=== PATIENT | male | born 1945 | race Two or more races ===

== ENCOUNTER 2018-05-09 13:12 | Inpatient (IN) | payer MEDICARE, OTHER ==
[~2018-05-09] VITALS: Ht 167.6 cm; Wt 107.7 kg
[~2018-05-09 13:12] MED LIST: OLME20TA17
[2018-05-09 14:30] LABS: BASOPHILS # (AUTO) 0.11 x10^3/uL (0-0.1); BASOPHILS % (AUTO) 1 % (0-1); EOSINOPHILS # (AUTO) 1.06 x10^3/uL (0-0.4); EOSINOPHILS % (AUTO) 14 % (1-7); LYMPHOCYTES # (AUTO) 1.67 x10^3/uL (1-3.4); LYMPHOCYTES % (AUTO) 22 % (22-44); MD NO; MEAN CORPUSCULAR HEMOGLOBIN 31.3 pg (27.5-34.5); MEAN CORPUSCULAR HGB CONC 33.1 g/dL (33.2-36.2); MEAN CORPUSCULAR VOLUME 94.6 fL (81-97); MEAN PLATELET VOLUME 8.1 fL (7.4-10.4); MONOCYTES # (AUTO) 0.46 x10^3/uL (0.2-0.8); MONOCYTES % (AUTO) 6 % (2-9); NEUTROPHILS # (AUTO) 4.32 x10^3/uL (1.8-6.8); NEUTROPHILS % (AUTO) 57 % (42-75); PLATELET COUNT 188 x10^3/uL (130-400); RED BLOOD COUNT 5.91 x10^6/uL (4.38-5.82); RED CELL DISTRIBUTION WIDTH 14.4 % (9.4-14.8)
[2018-05-09 14:37] LABS: INTERNATIONAL NORMALIZED RATIO 1.02 (0.93-1.1); PROTHROMBIN TIME 10.5 Seconds (9.6-11.5)
[2018-05-09 14:40] LABS: ALANINE AMINOTRANSFERASE 25 U/L (12-78); ALBUMIN 3.1 g/dL (3.4-5.0); ANION GAP 5 mmol/L (5-15); CALCIUM 8.6 mg/dL (8.5-10.1); CHLORIDE 108 mmol/L (98-107); CREATININE 1.28 mg/dL (0.7-1.3)
[2018-05-09 14:45] LABS: ALKALINE PHOSPHATASE 109 U/L (45-117); BILIRUBIN,TOTAL 0.5 mg/dL (0.2-1.0); TROPONIN I < 0.015 ng/mL (0.000-0.045)
[2018-05-09] MEDS ORDERED: OLME1TAB28 PO (16:06)
[2018-05-09] MEDS ORDERED: LINA5TAB PO (16:06)
[2018-05-09] MEDS ORDERED: FINA5TAB4 PO (16:06)
[2018-05-09] MEDS ORDERED: METF500T5 PO (16:06)
[2018-05-09] MEDS ORDERED: ALLO300T PO (16:06)
[2018-05-09] MEDS ORDERED: CLON0.2T PO (16:06)
[2018-05-09] MEDS ORDERED: OMEP-110 PO (16:06)
[2018-05-09] MEDS ORDERED: ATOR40TA78 PO (16:06)
[2018-05-09] MEDS ORDERED: ASPI-515 PO (16:06)
[2018-05-09] MEDS ORDERED: NITROGLYCERIN 0.4 MG BOTTLE (25 TABS) SL PRN (17:00)
[2018-05-09] MEDS ORDERED: ENALAPRILAT 1.25 MG/ML, 2ML IVPush PRN (17:00)
[2018-05-09] MEDS ORDERED: ONDANSETRON ODT 4 MG PO PRN (17:00)
[2018-05-09] MEDS ORDERED: BISACODYL 10 MG SUPP PR PRN (17:00)
[2018-05-09] MEDS ORDERED: DEXTROSE 50%, 50ML SYRINGE IVPush PRN (17:00)
[2018-05-09] MEDS: INSULIN LISPRO 100 UNITS/ML, PEN SQ-INSULIN SCH ×2 (17:00→20:10)
[2018-05-09] MEDS ORDERED: NITROGLYCERIN 0.4 MG/SPRAY SL PRN (17:00)
[2018-05-09] MEDS ORDERED: DEXTROSE 4 GM TAB.CHEW PO PRN (17:00)
[2018-05-09] MEDS ORDERED: morphine SULFATE 10 MG/ML, 1ML IV PRN (17:00)
[2018-05-09] MEDS ORDERED: GLUCAGON 1 MG IM PRN (17:00)
[2018-05-09] MEDS ORDERED: POLYETHYLENE GLYCOL 17 GM PACKET PO PRN (17:00)
[2018-05-09] MEDS ORDERED: ACETAMINOPHEN 325 MG TABLET PO PRN (17:00)
[2018-05-09] MEDS ORDERED: MAALOX/HYOSCYAMINE/LIDOCAINE 45 ML BTL PO PRN (17:00)
[2018-05-09] MEDS ORDERED: ENOXAPARIN 40 MG/0.4 ML SQ SCH (17:00)
[2018-05-09] MEDS ORDERED: ONDANSETRON 2MG/ML, 2ML IVPush PRN (17:00)
[2018-05-09 17:23] LABS: THYROID STIMULATING HORMONE 2.4 mIU/L (0.358-3.740)
[2018-05-09] MEDS ORDERED: OMNIPAQUE 350 MG/ML, 100ML BOTTLE ONE (17:23)
[2018-05-09] MEDS ORDERED: ALBUTEROL SULFATE 2.5 MG/3 ML NPPB PRN (17:30)
[2018-05-09 17:37] LABS: HEMOGLOBIN A1C 6.6 % (4.2-6.3)
[2018-05-09 18:05] VITALS: BP 219/83
[2018-05-09] MEDS: CARVEDILOL 25 MG TABLET PO SCH (18:12)
[2018-05-09 20:59] LABS: TROPONIN I < 0.015 ng/mL (0.000-0.045)
[2018-05-09] MEDS ORDERED: FAMOTIDINE 20 MG TABLET PO SCH (21:00)
[2018-05-09] MEDS ORDERED: ATORVASTATIN 40 MG TABLET PO SCH (21:00)
[2018-05-09] MEDS: SODIUM CHLORIDE FLUSH 10ML SYR IVF SCH ×2 (21:00)
[2018-05-10 01:30] VITALS: BP 148/73
[2018-05-10 02:47] LABS: ANION GAP 5 mmol/L (5-15); CALCIUM 8.5 mg/dL (8.5-10.1); CHLORIDE 109 mmol/L (98-107); CHOLESTEROL, TOTAL 144 mg/dL (140-239); CREATININE 1.16 mg/dL (0.7-1.3); TRIGLYCERIDES 225 mg/dL (50-200); VLDL CHOLESTEROL 45 mg/dL (0-25)
[2018-05-10 02:49] LABS: CHOL/HDL RATIO 3.4; HDL CHOL % 29 % (26-37); HDL CHOLESTEROL (DIRECT) 42 mg/dL (40-60); LDL CHOLESTEROL,CALCULATED 57 mg/dL (54-169); LDL/HDL RATIO 1.4 (0.5-3.0)
[2018-05-10 02:50] LABS: TROPONIN I < 0.015 ng/mL (0.000-0.045)
[2018-05-10 02:54] LABS: BASOPHILS # (AUTO) 0.03 x10^3/uL (0-0.1); BASOPHILS % (AUTO) 0 % (0-1); EOSINOPHILS # (AUTO) 1.02 x10^3/uL (0-0.4); EOSINOPHILS % (AUTO) 15 % (1-7); LYMPHOCYTES # (AUTO) 1.45 x10^3/uL (1-3.4); LYMPHOCYTES % (AUTO) 21 % (22-44); MD NO; MEAN CORPUSCULAR HEMOGLOBIN 31.9 pg (27.5-34.5); MEAN CORPUSCULAR HGB CONC 33.3 g/dL (33.2-36.2); MEAN CORPUSCULAR VOLUME 95.9 fL (81-97); MEAN PLATELET VOLUME 8.3 fL (7.4-10.4); MONOCYTES % (AUTO) 7 % (2-9); NEUTROPHILS # (AUTO) 3.95 x10^3/uL (1.8-6.8); NEUTROPHILS % (AUTO) 57 % (42-75); PLATELET COUNT 205 x10^3/uL (130-400); RED BLOOD COUNT 5.62 x10^6/uL (4.38-5.82); RED CELL DISTRIBUTION WIDTH 14.7 % (9.4-14.8)
[2018-05-10] MEDS ORDERED: CARV-39 PO (04:41)
[2018-05-10] MEDS ORDERED: ASPIRIN 325 MG TABLET EC PO SCH (06:00)
[2018-05-10] MEDS: CARVEDILOL 25 MG TABLET PO SCH (06:01)
[2018-05-10] MEDS: INSULIN LISPRO 100 UNITS/ML, PEN SQ-INSULIN SCH ×3 (07:00→16:00)
[2018-05-10] MEDS: SODIUM CHLORIDE FLUSH 10ML SYR IVF SCH ×2 (07:22→07:41)
[2018-05-10] MEDS ORDERED: PANTOPROZOLE 40MG TABLET PO SCH (07:30)
[2018-05-10 07:52] VITALS: BP 152/76
[2018-05-10 07:53] VITALS: BP 142/79
[2018-05-10] MEDS ORDERED: FLUTICASONE/VILANTEROL 200-25MCG/INH INH SCH (09:00)
[2018-05-10] MEDS ORDERED: HYDROCHLOROTHIAZIDE 25 MG TABLET PO SCH (09:00)
[2018-05-10] MEDS ORDERED: ALLOPURINOL 300 MG TABLET PO SCH (09:00)
[2018-05-10] MEDS ORDERED: LOSARTAN 50MG TABLET PO SCH (09:00)
[2018-05-10] MEDS ORDERED: AMLODIPINE 5 MG TABLET PO SCH (09:00)
[2018-05-10] MEDS ORDERED: FINASTERIDE 5 MG TABLET PO SCH (09:00)
[2018-05-10] MEDS ORDERED: SENNA/DOCUSATE TABLET PO SCH (09:00)
[2018-05-10] MEDS ORDERED: REGADENOSON 0.4 MG/5 ML SYRINGE ONE (09:53)
[2018-05-10 14:18] VITALS: BP 168/80
[2018-05-10] MEDS ORDERED: AMLO10TA2 PO (16:31)
[2018-05-10] MEDS ORDERED: PNEUMOCOCCAL 23 VACCINE IM-VACC ONE (17:00)
== END 2018-05-10 17:35 | disposition home or self-care (01) | DRG 189 ==
LOC: ED 15:24 → EDIP 16:58 → 4WST 17:53
PROVIDERS: ADMIT Internal Medicine; ATTEND Hospitalist
DX: J96.21 Acute and chronic respiratory failure with hypoxia (principal); E11.9 Type 2 diabetes mellitus without complications; E66.9 Obesity, unspecified; E78.5 Hyperlipidemia, unspecified; G47.33 Obstructive sleep apnea (adult) (pediatric); M10.9 Gout, unspecified; D75.1 Secondary polycythemia; I10 Essential (primary) hypertension; J43.9 Emphysema, unspecified; K21.9 Gastro-esophageal reflux disease without esophagitis; K80.20 Calculus of gallbladder without cholecystitis without obstruction; N40.0 Benign prostatic hyperplasia without lower urinary tract symptoms; Z87.891 Personal history of nicotine dependence; Z99.81 Dependence on supplemental oxygen; Z68.38 Body mass index [BMI] 38.0-38.9, adult; Z79.899 Other long term (current) drug therapy
CPT/HCPCS: 36415; 71275; 78452; 80048; 80053; 80061; 82962; 83036; 83735; 83880; 84443; 84484; 85025; 85379; 85610; 85730; 93005; 93017; 93306; 93970; 99285; J1650; J2785; Q9967; A9502; C9898; J1815

== ENCOUNTER 2018-10-08 14:44 | Observation (INO) | payer MEDICARE ==
[~2018-10-08] VITALS: Ht 167.6 cm; Wt 104.3 kg
[~2018-10-08 14:44] MED LIST changes: +ALLO300T PO; +AMLO10TA6 PO; +ASPI-515 PO; +ATOR40TA78 PO; +CARV-39 PO; +CLON0.2T PO; +FINA5TAB4 PO; +LINA5TAB PO; +METF500T17 PO; +OLME1TAB28 PO; +OMEP-110 PO
[2018-10-08 15:24] LABS: BASOPHILS # (AUTO) 0.04 x10^3/uL (0-0.1); BASOPHILS % (AUTO) 1 % (0-1); EOSINOPHILS # (AUTO) 0.69 x10^3/uL (0-0.4); EOSINOPHILS % (AUTO) 10 % (1-7); LYMPHOCYTES # (AUTO) 1.44 x10^3/uL (1-3.4); LYMPHOCYTES % (AUTO) 21 % (22-44); MD NO; MEAN CORPUSCULAR HEMOGLOBIN 32.2 pg (27.5-34.5); MEAN CORPUSCULAR HGB CONC 33.2 g/dL (33.2-36.2); MEAN CORPUSCULAR VOLUME 96.9 fL (81-97); MEAN PLATELET VOLUME 7.7 fL (7.4-10.4); MONOCYTES # (AUTO) 0.51 x10^3/uL (0.2-0.8); MONOCYTES % (AUTO) 8 % (2-9); NEUTROPHILS # (AUTO) 4.17 x10^3/uL (1.8-6.8); NEUTROPHILS % (AUTO) 61 % (42-75); PLATELET COUNT 219 x10^3/uL (130-400); RED BLOOD COUNT 5.07 x10^6/uL (4.38-5.82); RED CELL DISTRIBUTION WIDTH 14.7 % (9.4-14.8)
[2018-10-08 15:32] LABS: ALANINE AMINOTRANSFERASE 34 U/L (12-78); ALBUMIN 3.4 g/dL (3.4-5.0); ANION GAP 9 mmol/L (5-15); CALCIUM 7.5 mg/dL (8.5-10.1); CHLORIDE 101 mmol/L (98-107); CREATININE 1.42 mg/dL (0.7-1.3)
[2018-10-08 15:36] LABS: ALKALINE PHOSPHATASE 63 U/L (45-117); BILIRUBIN,TOTAL 0.9 mg/dL (0.2-1.0); TOTAL PROTEIN 6.8 g/dL (6.4-8.2)
[2018-10-08 15:42] LABS: TROPONIN I 0.039 ng/mL (0.000-0.045)
[2018-10-08] MEDS ORDERED: POTASSIUM CHLORIDE 20 MEQ TAB.ER.PRT ONE (15:50)
[2018-10-08] MEDS ORDERED: POTASSIUM CHLORIDE 40 MEQ in SODIUM CHLORIDE 0.9% 500 ML IV ONE (16:00)
[2018-10-08] MEDS ORDERED: POTASSIUM CHLORIDE 20 MEQ TAB.ER.PRT PO ONE (16:00)
[2018-10-08] MEDS ORDERED: CHLO25TA PO (16:20)
[2018-10-08] MEDS ORDERED: ACETAMINOPHEN 325 MG TABLET PO PRN (17:00)
[2018-10-08] MEDS ORDERED: MAGNESIUM SULFATE PMX 2GM/50ML 50 ML IV ONE (17:30)
[2018-10-08 17:42] VITALS: BP 177/77
[2018-10-08] MEDS: ENOXAPARIN 40 MG/0.4 ML SQ SCH (17:42)
[2018-10-08] MEDS: CARVEDILOL 25 MG TABLET PO SCH ×3 (17:42→17:57)
[2018-10-08 20:00] VITALS: BP 142/74
[2018-10-08] MEDS: INSULIN LISPRO 100 UNITS/ML, PEN SQ-INSULIN SCH (21:00)
[2018-10-08] MEDS: ATORVASTATIN 40 MG TABLET PO SCH (22:23)
[2018-10-09 01:27] VITALS: BP 183/77
[2018-10-09 02:05] VITALS: BP 170/79
[2018-10-09 06:01] LABS: ANION GAP 9 mmol/L (5-15); CHLORIDE 107 mmol/L (98-107)
[2018-10-09 06:03] LABS: CREATININE 1.32 mg/dL (0.7-1.3)
[2018-10-09] MEDS ORDERED: POTASSIUM CHLORIDE 20 MEQ TAB.ER.PRT PO ONE ×2 (07:00→08:00)
[2018-10-09] MEDS: INSULIN LISPRO 100 UNITS/ML, PEN SQ-INSULIN SCH ×4 (07:00→21:11)
[2018-10-09 07:34] VITALS: BP 180/72
[2018-10-09] MEDS: FINASTERIDE 5 MG TABLET PO SCH (08:23)
[2018-10-09] MEDS: AMLODIPINE 10 MG TAB PO SCH (08:24)
[2018-10-09] MEDS: ASPIRIN 81 MG TABLET EC PO SCH (08:24)
[2018-10-09] MEDS: LINAGLIPTIN 5 MG TAB PO SCH (08:24)
[2018-10-09] MEDS: ALLOPURINOL 300 MG TABLET PO SCH (08:24)
[2018-10-09] MEDS: OMEPRAZOLE 20 MG CAPSULE.DR PO SCH (08:24)
[2018-10-09] MEDS: LOSARTAN 50MG TABLET PO SCH (08:24)
[2018-10-09] MEDS: SPIRONOLACTONE 50 MG TABLET PO SCH (12:00)
[2018-10-09 12:19] VITALS: BP 127/70
[2018-10-09 12:33] VITALS: BP 122/66
[2018-10-09] MEDS: CARVEDILOL 25 MG TABLET PO SCH (17:27)
[2018-10-09] MEDS: ENOXAPARIN 40 MG/0.4 ML SQ SCH (17:30)
[2018-10-09 18:43] VITALS: BP_SYST 125; BP_SYST 178; BP_DIAS 79; BP_DIAS 81
[2018-10-09] MEDS: ATORVASTATIN 40 MG TABLET PO SCH (21:10)
[2018-10-10 01:53] VITALS: BP 172/76
[2018-10-10] MEDS: CARVEDILOL 25 MG TABLET PO SCH (06:00)
[2018-10-10 06:19] LABS: ANION GAP 7 mmol/L (5-15); CALCIUM 7.9 mg/dL (8.5-10.1); CHLORIDE 107 mmol/L (98-107)
[2018-10-10 06:22] LABS: CREATININE 1.17 mg/dL (0.7-1.3)
[2018-10-10 06:50] VITALS: BP 187/86
[2018-10-10] MEDS ORDERED: POTASSIUM CHLORIDE 20 MEQ TAB.ER.PRT PO ONE (07:00)
[2018-10-10] MEDS: INSULIN LISPRO 100 UNITS/ML, PEN SQ-INSULIN SCH ×2 (07:00→11:00)
[2018-10-10] MEDS: LOSARTAN 50MG TABLET PO SCH (10:14)
[2018-10-10] MEDS: ALLOPURINOL 300 MG TABLET PO SCH (10:14)
[2018-10-10] MEDS: OMEPRAZOLE 20 MG CAPSULE.DR PO SCH (10:14)
[2018-10-10] MEDS: AMLODIPINE 10 MG TAB PO SCH (10:14)
[2018-10-10] MEDS: LINAGLIPTIN 5 MG TAB PO SCH (10:14)
[2018-10-10] MEDS: ASPIRIN 81 MG TABLET EC PO SCH (10:14)
[2018-10-10] MEDS: SPIRONOLACTONE 50 MG TABLET PO SCH (10:14)
[2018-10-10] MEDS: FINASTERIDE 5 MG TABLET PO SCH (10:15)
[2018-10-10] MEDS ORDERED: POTA20TA14 PO (11:15)
[2018-10-10] MEDS ORDERED: HYDR-3342 PO (11:15)
[2018-10-10] MEDS ORDERED: LOSA50TA2 PO (11:15)
[2018-10-10] MEDS ORDERED: SPIR50TA PO (11:17)
== END 2018-10-10 12:31 | disposition home or self-care (01) ==
LOC: ED 15:42 → INTOOBSV 16:12 → EDIP 16:12 → 4EST 17:12 → DCLOUNGE 10-10 12:15
PROVIDERS: ADMIT Internal Medicine; ATTEND Internal Medicine
DX: E87.6 Hypokalemia (principal); N18.3 Chronic kidney disease, stage 3 (moderate); E83.42 Hypomagnesemia; R00.1 Bradycardia, unspecified; E11.65 Type 2 diabetes mellitus with hyperglycemia; E11.22 Type 2 diabetes mellitus with diabetic chronic kidney disease; E66.01 Morbid (severe) obesity due to excess calories; E78.5 Hyperlipidemia, unspecified; E88.81 Metabolic syndrome and other insulin resistance; G47.33 Obstructive sleep apnea (adult) (pediatric); I12.9 Hypertensive chronic kidney disease with stage 1 through stage 4 chronic kidney disease, or unspecified chronic kidney disease; I44.0 Atrioventricular block, first degree; M10.9 Gout, unspecified; K21.9 Gastro-esophageal reflux disease without esophagitis; N17.9 Acute kidney failure, unspecified; Z79.82 Long term (current) use of aspirin; Z79.84 Long term (current) use of oral hypoglycemic drugs; Z79.899 Other long term (current) drug therapy; Z82.3 Family history of stroke; Z87.891 Personal history of nicotine dependence; Z99.81 Dependence on supplemental oxygen
CPT/HCPCS: 36415; 71045; 80048; 80053; 82962; 83735; 83880; 84132; 84484; 85025; 93005; 93306; 96365; 96366; 96368; 96372; 99284; G0378; J1650; J1815; J3475; J3480; J7040

== ENCOUNTER → 2020-09-15 | Outpatient (CLI) | payer MEDICARE ==
[~2020-09-15] MED LIST changes: +AMLO-211 PO; -AMLO10TA6 PO; +CHLO25TA PO; +HYDR-3342 PO; +LOSA50TA2 PO; +POTA20TA14 PO; +REGADENOSON 0.4 MG/5 ML SYRINGE ONE; +SPIR50TA PO
== END | disposition home or self-care (01) ==
LOC: CFH 08:07
PROVIDERS: ATTEND Internal Medicine Cardiovascular Disease
DX: I10 Essential (primary) hypertension (principal); R07.89 Other chest pain
CPT/HCPCS: 78452; 93017; A9502; J2785